=== PATIENT | female | born 1955 | race Caucasian/White ===

== ENCOUNTER 2024-08-21 12:41 | Emergency (ER) | payer BC, SELFPAY ==
[2024-08-21 12:49] VITALS: BP 179/106
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
[2024-08-21] MEDS: ULTRAM 50 MG PO (14:02)
[2024-08-21 14:31] VITALS: BP 157/85
== END 2024-08-21 14:32 | disposition home or self-care (01) ==
LOC: EMR 12:41
PROVIDERS: EMERGENCY PHYSICIAN Student in an Organized Health Care Education/Training Program; FAMILY PHYSICIAN Family Medicine
DX: S82.852A Displaced trimalleolar fracture of left lower leg, initial encounter for closed fracture (principal); V28.41XA Electric (assisted) bicycle driver injured in noncollision transport accident in traffic accident, initial encounter; E03.9 Hypothyroidism, unspecified; Z90.49 Acquired absence of other specified parts of digestive tract
CPT/HCPCS: 29515; 99283; 73610